=== PATIENT | male | born 1945 | race Asian ===

== ENCOUNTER 2022-12-04 16:01 | Emergency (ER) | payer BC ==
[2022-12-04] MEDS ORDERED: BACITRACIN-POLYMYXIN B TOPICAL OINT UD TOP ONE (20:45)
[2022-12-04] MEDS ORDERED: NEOMYCIN-BACITRACIN-POLYM 15GM TOP OINT TOP ONE (22:00)
[2022-12-04 22:39] VITALS: BP 129/99
== END 2022-12-04 22:41 | disposition home or self-care (01) ==
LOC: ER 16:01
DX: S00.83XA Contusion of other part of head, initial encounter (principal); S60.512A Abrasion of left hand, initial encounter; W01.198A Fall on same level from slipping, tripping and stumbling with subsequent striking against other object, initial encounter; Y93.89 Activity, other specified; Y92.89 Other specified places as the place of occurrence of the external cause; Y99.8 Other external cause status
CPT/HCPCS: 70450; 72125